=== PATIENT | female | born 1990 | race Two or more races ===

== ENCOUNTER 2023-03-21 11:40 | Emergency (ER) | payer MEDICAID ==
[~2023-03-21] VITALS: Ht 165.1 cm; Wt 72.7 kg
[2023-03-21 12:25] LABS: BASOPHILS # (AUTO) 0.1 X10'3 (0-0.2); BASOPHILS % (AUTO) 0.9 % (0-1); EOSINOPHILS # (AUTO) 0.2 X10'3 (0-0.9); EOSINOPHILS % (AUTO) 3.3 % (0-6); HEMATOCRIT 41.9 % (35.0-45.0); LYMPHOCYTES # (AUTO) 1.8 X10'3 (1.1-4.8); LYMPHOCYTES % (AUTO) 31.1 % (21-51); MEAN CORPUSCULAR HEMOGLOBIN 29.2 PG (27.0-31.0); MEAN CORPUSCULAR HGB CONC 33.5 g/dL (33.0-36.5); MEAN CORPUSCULAR VOLUME 87.1 FL (78-98); MEAN PLATELET VOLUME 8.3 FL (7.4-10.4); MONOCYTES # (AUTO) 0.6 X10'3 (0-0.9); MONOCYTES % (AUTO) 9.6 % (2-12); NEUTROPHILS # (AUTO) 3.2 X10'3 (1.8-7.7); NEUTROPHILS % (AUTO) 55.1 % (42-75); PLATELET COUNT 250 X10'3 (140-440); RED BLOOD COUNT 4.81 X10'6 (4.20-5.60); RED CELL DISTRIBUTION WIDTH 14.2 % (11.5-14.5); WHITE BLOOD COUNT 5.8 X10'3 (4.5-11.0)
[2023-03-21 12:37] LABS: ALANINE AMINOTRANSFERASE 11 U/L (12-78); ALKALINE PHOSPHATASE 58 IU/L (46-116); ANION GAP 11 (8-16); ASPARTATE AMINO TRANSFERASE 11 U/L (10-37); BILIRUBIN,TOTAL 0.4 MG/DL (0.1-1.0); BLOOD UREA NITROGEN 8 MG/DL (7-18); BUN/CREATININE RATIO 11.4 (10.0-20.0); CALCIUM 9.1 MG/DL (8.5-10.1); CHLORIDE 102 MMOL/L (99-107); GLUCOSE 101 MG/DL (70-104); POTASSIUM 3.2 MMOL/L (3.5-5.1); SODIUM 138 MMOL/L (135-145); TOTAL CARBON DIOXIDE 25.3 MMOL/L (24-32); eCRCL 103 ML/MIN; eGFR > 90 ML/MIN
[2023-03-21 12:46] LABS: PRO BRAIN NATRIURETIC PEPTIDE 49 PG/ML (0-125)
[2023-03-21 13:17] VITALS: BP 136/76; PULSE 74; TEMP 98; O2SAT 100
[2023-03-21 13:19] VITALS: RESP 17
[2023-03-21] MEDS ORDERED: potassium chloride 10mEq ER tablet PO ONE (13:20)
--- NOTE | 2023-03-21 13:55 | NUR ---
PT AWAITING MSE FROM [facility].
--- NOTE | 2023-03-21 22:31 | NUR ---
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
== END 2023-03-21 22:32 | disposition home or self-care (01) ==
LOC: ER 11:40
DX: R07.9 Chest pain, unspecified (principal)
CPT/HCPCS: 36415; 71045; 80053; 83880; 84484; 85025; 93005; 99285

== ENCOUNTER 2023-09-04 10:21 | Outpatient (CLI) | payer MEDICAID | END 2023-09-04 23:59 | disposition home or self-care (01) | LOC: RAD 10:21 | PROVIDERS: ATTEND Family Medicine | DX: M79.602 Pain in left arm (principal) | CPT/HCPCS: 73090; 73130 ==

== ENCOUNTER 2024-02-11 09:32 | Outpatient (CLI) | payer MEDICAID | END 2024-02-11 23:59 | disposition home or self-care (01) | LOC: MRI02 09:32 | PROVIDERS: ATTEND Physician Assistant | DX: S63.072A Subluxation of distal end of left ulna, initial encounter (principal); S63.592A Other specified sprain of left wrist, initial encounter; M19.032 Primary osteoarthritis, left wrist; M25.432 Effusion, left wrist; M25.532 Pain in left wrist; M79.602 Pain in left arm; R20.9 Unspecified disturbances of skin sensation; X58.XXXA Exposure to other specified factors, initial encounter; Y93.89 Activity, other specified; Y92.89 Other specified places as the place of occurrence of the external cause; Y99.8 Other external cause status | CPT/HCPCS: 73221 ==

== ENCOUNTER 2024-12-16 06:49 | Emergency (ER) | payer MEDICAID ==
[~2024-12-16] VITALS: Ht 165.1 cm; Wt 85.0 kg
[2024-12-16 07:40] LABS: URINE HCG POSITIVE (NEG)
[2024-12-16 07:45] LABS: LEUKOCYTE ESTERASE ,URINE TRACE (Neg); NITRITES, URINE POSITIVE (Neg); OCCULT BLOOD,URINE LARGE (Neg)
[2024-12-16 07:49] LABS: UA COLLECTION TYPE CLN CATCH MIDSTREAM
[2024-12-16 07:52] LABS: MUCUS STRANDS NONE SEEN /LPF (Neg); SQUAMOUS EPITHELIAL CELL,UR MODERATE /LPF (FEW)
--- NOTE | 2024-12-16 08:43 | Physician Documentation ---
History of Present Illness ~ Chief Complaint: Complications Stated Complaint: /BLOOD IN URINE Time Seen by MD: 08:42 Primary Medical Doctor: NONE Mode of Arrival: POV HPI This is a 34-year-old female who reports that she is approximately seven weeks . She notes previous miscarriages in the past. She is experiencing bloody urine versus vaginal discharge, she is unclear which. Small amount. Denies any dysuria, fever, chills, body aches, nausea, vomiting. Feels overall well. Last Menstrual Period: Oct 24, 2024 Medication Reconciliation Allergies: Coded Allergies: No Known Allergies (Unverified , 03/21/23) Scheduled Cephalexin*Monohydrate* (Keflex*), 1 CAP PO TID Past Medical History Last Menstrual Period: Oct 24, 2024 Review of Systems ROS As stated above in the HPI, otherwise all systems are reviewed and negative. Physical Exam Physical Exam Vital Signs: Temperature: 97.9, Source: Oral, Heart Rate: 77, Respiratory Rate: 16, BP: 106/75, Pulse Oximetry: 98, Weight: 85.000 Oxygen Flow Rate: 0 Physical Exam General: Alert, no apparent distress. Neck: Full range of motion. Respiratory: Lungs clear, no respiratory distress. Chest: No accessory muscle use. Cardiovascular: Regular rate and rhythm, no murmurs. Gastrointestinal: Soft, nontender, nondistended. Bowels sounds present. No CVA tenderness Extremities: Normal range of motion, no deformity. Neurologic: Oriented x4. Psychiatric: Normal mood and affect. Skin: Normal color, warm and dry. No edema, no ecchymosis. Progress Results/Orders Results/Orders Vital Signs 12/16/24 12/16/24 12/16/24 12/16/24 06:51 07:29 07:29 09:06 Temp 97.9 98.0 Pulse 80 77 77 Resp 16 16 16 16 B/P (MAP) 161/80 106/75 (85) 106/75 Pulse Ox 99 98 98 O2 Flow Rate 0 0 Laboratory Tests Test 12/16/24 07:21 Urine Specimen Description Cln catch midstream Urine Color Straw Urine Clarity Cloudy Urine pH 6.5 Urine Specific [place] 1.015 Urine Protein Negative Urine Glucose (UA) Negative Urine Ketones Negative Urine Occult Blood Large H Urine Nitrite Positive H Urine Bilirubin Negative Urine Urobilinogen 0.2 Urine Leukocyte Esterase Trace H Urine RBC 20-50 Urine WBC 5-10 H Urine Squamous Epithelial Cells Moderate Urine Bacteria 4+ Urine Mucus None seen Urine Culture Indicated Indicated Volume Urine Centrifuged 10 ml Urine HCG, Qualitative Positive Urine Comment Microbiology Date/Time Source Procedure Growth Status 12/16/24 07:52 Urine Clean Catch Midstream Urine Culture - Preliminary Culture received. Resulted Medical Decision Making Additional Comment Discussed with the patient that this most likely is simply due to her urinary tract infection. She could also be experiencing an early miscarriage. She should follow up with her gynecologic provider soon, return if worse such as with significant bleeding and dizziness. Or, with fevers and chills, any other concerns that she is getting worse. Patient will be treated with Keflex. Departure Time of Disposition: 08:47 Disposition: 01 HOME / SELF CARE / HOMELESS Impression: Primary Impression: Complication of Additional Impression: Acute urinary tract infection Condition: Stable Discharge Instructions: and Urinary Tract Infection, Threatened M iscarriage Additional Instructions: You have evidence of a urinary tract infection, and this could be the cause of the blood. You could also be experiencing implantation bleeding, or this could be an early miscarriage. Take the antibiotics as prescribed, return if not better in two days or if worse at any time. Concerns would include dizziness, bleeding more than 1-2 pads an hour, fevers or chills, body aches, any concerns that you were getting significantly worse. Otherwise, follow up with the primary care provider within a week, and keep the upcoming OB appointment. Good luck to you, I hope this goes well. Referrals: NO PRIMARY CARE PROVIDER (PCP) Prescriptions Cephalexin*Monohydrate* (Keflex*) 500 Mg Capsule 1 CAP PO TID for 7 Days, #21 CAP Prov: MALLORY SOUZA NP 12/16/24 Education Educated: Patient, Family Educated regarding: diagnosis, treatment, prognosis, need for follow up Signature Scribe Signature: x Attestation: The note accurately reflects work and decisions made by me.Mallory Valverde NP 12/16/24 09:46 MALLORY SOUZA NP Dec 16, 2024 08:43
[2024-12-16] MEDS ORDERED: CEPH-585 PO (08:49)
[2024-12-16 09:06] VITALS: BP 106/75; PULSE 77; RESP 16; TEMP 98; O2SAT 98
== END 2024-12-16 09:07 | disposition home or self-care (01) ==
LOC: ER 06:50
DX: O23.41 Unspecified infection of urinary tract in pregnancy, first trimester (principal); N39.0 Urinary tract infection, site not specified; Z3A.01 Less than 8 weeks gestation of pregnancy
CPT/HCPCS: 81001; 81025; 87077; 87088; 87186; 99283

== ENCOUNTER 2024-12-17 19:42 | Emergency (ER) | payer MEDICAID ==
[~2024-12-17] VITALS: Ht 165.1 cm; Wt 74.6 kg
[~2024-12-17 19:42] MED LIST: CEPH-585 PO
[2024-12-17 19:51] VITALS: BP 142/86
[2024-12-17 20:14] LABS: MEAN PLATELET VOLUME 7.3 FL (7.4-10.4); RED CELL DISTRIBUTION WIDTH 14.7 % (11.5-14.5)
[2024-12-17 20:25] LABS: CREATININE 0.61 MG/DL (0.40-0.90); TOTAL CARBON DIOXIDE 22.5 MMOL/L (24-32); eCRCL 116 ML/MIN; eGFR > 90 ML/MIN
[2024-12-17 21:26] LABS: LEUKOCYTE ESTERASE ,URINE NEGATIVE (Neg); NITRITES, URINE NEGATIVE (Neg); OCCULT BLOOD,URINE LARGE (Neg); UA COLLECTION TYPE CLN CATCH MIDSTREAM; URINE HCG POSITIVE (NEG)
--- NOTE | 2024-12-17 21:29 | Physician Documentation ---
History of Present Illness ~ Chief Complaint: Abdominal Pain Stated Complaint: COMPLICATIONS Time Seen by MD: 21:19 Primary Medical Doctor: NONE HPI 34 year old female reports that she is 7 weeks and was diagnosed here with a UTI and prescribed cephalexin. She has been taking it but reports some intermittent suprapubic pain and bleeding when she wipes. Medication Reconciliation Allergies: Coded Allergies: No Known Allergies (Unverified , 03/21/23) Scheduled Cephalexin*Monohydrate* (Keflex*), 1 CAP PO TID Review of Systems All Other Systems at this time: Reviewed and Negative Physical Exam Vital Signs: RN Vital Signs have been reviewed: Yes, Temperature: 96.8, Source: Temporal, Heart Rate: 83, Respiratory Rate: 15, BP: 142/86, Pulse Oximetry: 99, Weight: 74.600 Physical Exam HEENT: PERRL, moist oral mucosa, EOMI Pulmonary: No respiratory distress MSK: no deformity Skin: w/d/i, no rash Neuro: alert, nonfocal Psych: normal affect Progress Results/Orders Results/Orders Orders - QUETA BARRERA MD Ua W/Microscopic, Cult If Ind (12/17/24 21:13) Completed Orders - QUETA BARRERA MD Hcg, Ur Ql (12/17/24 19:55) Cbc/Diff (12/17/24 19:55) BMP (12/17/24 19:55) Lipase (12/17/24 19:55) CMP (12/17/24 19:55) Hcg Serum Qt (12/17/24 20:07) Vital Signs 12/17/24 19:51 Temp 96.8 Pulse 83 Resp 15 B/P (MAP) 142/86 Pulse Ox 99 Laboratory Tests Test 12/17/24 20:07 12/17/24 21:13 White Blood Count 7.8 Red Blood Count 4.60 Hemoglobin 13.5 Hematocrit 39.7 Mean Corpuscular Volume 86.3 Mean Corpuscular Hemoglobin 29.3 Mean Corpuscular Hemoglobin Concent 34.0 Red Cell Distribution Width 14.7 H Platelet Count 274 Mean Platelet Volume 7.3 L Neutrophils (%) (Auto) 62.3 Lymphocytes (%) (Auto) 23.1 Monocytes (%) (Auto) 8.7 Eosinophils (%) (Auto) 5.1 Basophils (%) (Auto) 0.8 Neutrophils # (Auto) 4.9 Lymphocytes # (Auto) 1.8 Monocytes # (Auto) 0.7 Eosinophils # (Auto) 0.4 Basophils # (Auto) 0.1 CBC Comment Sodium Level 139 Potassium Level 3.4 L Chloride Level 106 Carbon Dioxide Level 22.5 L Anion Gap 11 Blood Urea Nitrogen 7 Creatinine 0.61 Estimated GFR/1.73 m2 > 90 BUN/Creatinine Ratio 11.5 Glucose Level 132 H Calcium Level 8.6 Total Bilirubin 0.2 Aspartate Amino Transf (AST/SGOT) 30 Alanine Aminotransferase (ALT/SGPT) 34 Alkaline Phosphatase 42 L Total Protein 7.2 Albumin 3.4 Globulin 3.8 Albumin/Globulin Ratio 0.9 L Lipase 69 HCG Beta Subunit 1646 Chemistry Comments Urine Specimen Description Cln catch midstream Urine Color Yellow Urine Clarity Clear Urine pH 6.5 Urine Specific [place] 1.025 Urine Protein Trace Urine Glucose (UA) Negative Urine Ketones Trace H Urine Occult Blood Large H Urine Nitrite Negative Urine Bilirubin Negative Urine Urobilinogen 1.0 Urine Leukocyte Esterase Negative Volume Urine Centrifuged 10 ml Urine HCG, Qualitative Positive Urine Comment Medical Decision Making Findings 34 year old female with likely hematuria from UTI, taking appropriate antibiotics. Labs unremarkable, counseled that I recommend that she follow up with her OB specialist as already scheduled this Thursday but that 7 weeks is like ly too early to perform a bedside ultrasound and detect a heartbeat at this time. Counseled to continue antibiotics and return precautions discussed. Additional Comment Ddx = vaginal bleeding in , UTI, hemorrhagic cystitis, threatened AB, normal intrauterine Departure Disposition: HOME / SELF CARE / HOMELESS Impression: Primary Impression: UTI in Condition: Stable Discharge Instructions: Urinary Tract Infection, Adult Referrals: NO PRIMARY CARE PROVIDER (PCP) Education Educated: Patient Educated regarding: diagnosis, treatment, prognosis, need for follow up Signature Scribe Signature: . Attestation: . QUETA BARRERA MD Dec 17, 2024 21:29
[2024-12-17 21:38] LABS: MUCUS STRANDS FEW /LPF (Neg); SQUAMOUS EPITHELIAL CELL,UR FEW /LPF (FEW)
[2024-12-17 22:32] VITALS: PULSE 114; RESP 16; TEMP 97; O2SAT 96
== END 2024-12-17 22:10 | disposition home or self-care (01) ==
LOC: ER 19:43
DX: O23.41 Unspecified infection of urinary tract in pregnancy, first trimester (principal); N39.0 Urinary tract infection, site not specified; Z3A.01 Less than 8 weeks gestation of pregnancy
CPT/HCPCS: 36415; 80053; 81001; 81025; 83690; 84702; 85025; 99283